=== PATIENT | female | born 1935 | race Two or more races ===

== ENCOUNTER 2020-03-28 08:40 | Day surgery (SDC) | payer OTHER | END 2020-03-28 12:00 | disposition home or self-care (01) | LOC: AMB-ENDOS 08:40 | PROVIDERS: ATTEND Surgery | DX: K62.89 Other specified diseases of anus and rectum (principal); K64.8 Other hemorrhoids; Z20.828 Contact with and (suspected) exposure to other viral communicable diseases ==